=== PATIENT | female | born 1940 | race Caucasian/White ===

== ENCOUNTER 2022-06-07 09:22 | Day surgery (SDC) | payer MEDICARE ==
[2022-06-07] VITALS (8 sets, daily range): BP systolic 102–131; BP diastolic 57–105
[~2022-06-07] VITALS: Ht 167.6 cm; Wt 81.1 kg
[2022-06-07] MEDS ORDERED: cefazolin 2gm/D5W 100mL 100 ML IV ONE (09:50)
[2022-06-07] MEDS ORDERED: PANT40TA54 PO (10:29)
[2022-06-07] MEDS ORDERED: METO-395 PO (10:29)
[2022-06-07] MEDS ORDERED: NIAC1CAP PO (10:29)
[2022-06-07] MEDS ORDERED: OLME5TAB29 PO (10:29)
[2022-06-07] MEDS ORDERED: RIVA20TA PO (10:29)
[2022-06-07] MEDS ORDERED: FLEC50TA (10:29)
[2022-06-07] MEDS ORDERED: CALC-159 (10:31)
[2022-06-07] MEDS ORDERED: SOLI10TA7 PO (10:31)
[2022-06-07] MEDS ORDERED: MULT-1085 PO (10:31)
[2022-06-07] MEDS ORDERED: normal saline 1000ml 1,000 ML IV SCH (10:35)
[2022-06-07 10:49] LABS: BASOPHILS % (AUTO) 0.5 % (0-1); EOSINOPHILS # (AUTO) 0.1 X10'3 (0-0.9); EOSINOPHILS % (AUTO) 1.2 % (0-6); HEMATOCRIT 43.3 % (35.0-45.0); HEMOGLOBIN 14.2 g/dl (12.0-16.0); LYMPHOCYTES # (AUTO) 1.6 X10'3 (1.1-4.8); LYMPHOCYTES % (AUTO) 26.7 % (21-51); MEAN CORPUSCULAR HEMOGLOBIN 30.6 PG (27.0-31.0); MEAN CORPUSCULAR HGB CONC 32.8 g/dL (33.0-36.5); MEAN CORPUSCULAR VOLUME 93.4 FL (78-98); MEAN PLATELET VOLUME 10.3 FL (7.4-10.4); MONOCYTES # (AUTO) 0.5 X10'3 (0-0.9); MONOCYTES % (AUTO) 8.6 % (2-12); NEUTROPHILS # (AUTO) 3.8 X10'3 (1.8-7.7); PLATELET COUNT 147 X10'3 (140-440); RED BLOOD COUNT 4.63 X10'6 (4.20-5.60); RED CELL DISTRIBUTION WIDTH 14.4 % (11.5-14.5)
[2022-06-07 11:02] LABS: ALBUMIN 4.1 G/DL (3.4-5.0); ANION GAP 9 (8-16); BLOOD UREA NITROGEN 24 MG/DL (7-18); BUN/CREATININE RATIO 24.7 (10.0-20.0); CALCIUM 9.7 MG/DL (8.5-10.1); CHLORIDE 104 MMOL/L (99-107); CREATININE 0.97 MG/DL (0.40-0.90); GLUCOSE 112 MG/DL (70-104); MAGNESIUM 2.3 MG/DL (1.5-2.4); POTASSIUM 4.2 MMOL/L (3.5-5.1); SODIUM 141 MMOL/L (135-145); TOTAL CARBON DIOXIDE 27.6 MMOL/L (24-32); eGFR 55 ML/MIN
[2022-06-07] MEDS ORDERED: midazolam 1 mg/ML 2ml injection ONE (11:23)
[2022-06-07] MEDS ORDERED: LIDOCAINE 2%/EPI 1:100,000 inj. Multi-dose 20 ML VIAL ONE (11:23)
[2022-06-07] MEDS ORDERED: fentaNYL/PF 50MCG/1 ML 2ML syringe ONE (11:23)
[2022-06-07] MEDS ORDERED: vancomycin 1,000mg inj ONE (11:24)
== END 2022-06-07 16:00 | disposition home or self-care (01) ==
LOC: SSTAY O 09:22
PROVIDERS: ATTEND Internal Medicine Cardiovascular Disease
DX: Z45.010 Encounter for checking and testing of cardiac pacemaker pulse generator [battery] (principal); I49.5 Sick sinus syndrome; I10 Essential (primary) hypertension; I48.92 Unspecified atrial flutter; G47.30 Sleep apnea, unspecified; K21.9 Gastro-esophageal reflux disease without esophagitis; I48.0 Paroxysmal atrial fibrillation; Z88.0 Allergy status to penicillin; Z88.5 Allergy status to narcotic agent; Z72.89 Other problems related to lifestyle; Z79.01 Long term (current) use of anticoagulants; Z79.899 Other long term (current) drug therapy; Z96.612 Presence of left artificial shoulder joint; Z96.611 Presence of right artificial shoulder joint; Z90.710 Acquired absence of both cervix and uterus; Z98.890 Other specified postprocedural states; Z82.49 Family history of ischemic heart disease and other diseases of the circulatory system; Z82.3 Family history of stroke; Z80.8 Family history of malignant neoplasm of other organs or systems
CPT/HCPCS: 33228; 36415; 80048; 83735; 85025; 85610; 93005; 99152; 99153; C1785; J0690; J2250; J3010; J3370; J7030